=== PATIENT | female | born 2000 | race Caucasian/White ===

== ENCOUNTER 2024-04-24 05:05 | Emergency (ER) | payer OTHER ==
[~2024-04-24] VITALS: Ht 154.9 cm; Wt 58.1 kg
[2024-04-24 05:16] VITALS: BP 112/80; PULSE 109; RESP 16; TEMP 98.2; O2SAT 98
[2024-04-24] MEDS: ONDANSETRON 4 MG ODT PO ONE (05:33)
[2024-04-24 05:48] LABS: APPEARANCE,URINE CLEAR (CLEAR); BILIRUBIN,URINE NEGATIVE (NEGATIVE); BLOOD, URINE 3+ (NEGATIVE); COLOR,URINE YELLOW (YELLOW); LEUKOCYTE ESTERASE ,URINE NEGATIVE (NEGATIVE); NITRITE, URINE NEGATIVE (NEGATIVE); PROTEIN,URINE NEGATIVE (NEGATIVE); UGLUCOSE NEGATIVE (NEGATIVE); UROBILINOGEN,URINE 0.2 EU/dL (0.2 - 1)
[2024-04-24 06:01] LABS: BACTERIA,URINE 10-30 (MOD) /HPF (None Seen); MUCUS,URINE 1+ /LPF (None Seen); SQUAMOUS EPITHELIAL CELL,UR 0-3 (FEW) /LPF (0-3 (FEW)); WBC,URINE 0-5 /HPF (0-5)
[2024-04-24 06:16] LABS: FLU A ANTIGEN negative (NEGATIVE); FLU B ANTIGEN NEGATIVE (NEGATIVE)
[2024-04-24] MEDS: NACL 0.9% 1,000 ML IV ONE (06:43)
[2024-04-24] MEDS: KETOROLAC 30 MG/ML VIAL IVP ONE (06:43)
[2024-04-24 06:49] LABS: BASOPHILS % (AUTO) 0.3 % (0.0-2.0); HEMATOCRIT 37.4 % (36-48); HEMOGLOBIN 12.6 g/dL (12.0-16.0); LYMPHOCYTES % (AUTO) 36.9 % (20.5-51.1); MEAN CORPUSCULAR HEMOGLOBIN 30 pg (27-31); MEAN CORPUSCULAR HGB CONC 34 g/dL (33-37); MEAN CORPUSCULAR VOLUME 90.2 fL (80-94); MONOCYTES # (AUTO) 0.5 K/uL (0.8-1.0); MONOCYTES % (AUTO) 6.2 % (1.7-9.3); NEUTROPHILS # (AUTO) 4.6 K/uL (1.8-7.7); NEUTROPHILS % (AUTO) 56.6 % (42.2-75.2); PLATELET COUNT (AUTO) 89 K/uL (140-450); RED BLOOD CELL COUNT(AUTO) 4.15 MIL/uL (4.20-5.40); RED CELL DISTRIBUTION WIDTH 14.4 % (11.6-13.7); WHITE BLOOD COUNT (AUTO) 8.1 K/uL (4.8-10.8)
[2024-04-24 07:01] LABS: ANION GAP 14.1 (8-16); CALCIUM 8.3 mg/dL (8.5-10.1); CARBON DIOXIDE 25.4 mmol/L (21-32); CREATININE 0.8 mg/dL (0.6-1.3); POTASSIUM 3.5 mmol/L (3.5-5.1)
[2024-04-24 07:06] LABS: ALBUMIN 3.1 g/dL (3.4-5.0); BILIRUBIN,DIRECT 0.3 mg/dL (0.0-0.3); TOTAL BILIRUBIN 0.9 mg/dL (0.0-1.0); TOTAL PROTEIN, SERUM 6.9 g/dL (6.4-8.2)
[2024-04-24] MEDS: ACETAMINOPHEN 325 MG TAB PO ONE (07:17)
[2024-04-24] MEDS ORDERED: CRUSHER, PILL MC ONE (07:21)
[2024-04-24] MEDS: MORPHINE SULFATE 2 MG/ML SYR IVP ONE (07:31)
[2024-04-24] MEDS: METOCLOPRAMIDE 10 MG/2 ML INJ VIAL IVP ONE (07:35)
[2024-04-24] MEDS ORDERED: NAPR-1704 PO (08:58)
[2024-04-24] MEDS ORDERED: LOPE-289 PO (08:59)
[2024-04-24 09:00] VITALS: BP 113/68; PULSE 96; RESP 17; TEMP 98.2; O2SAT 96
[2024-04-25 08:09] LABS: HEPATITIS A ANTIBODY IGM Negative (Negative); HEPATITIS B CORE AB TOTAL Negative (Negative); HEPATITIS B CORE, IGM Negative (Negative); HEPATITIS B SURFACE ANTIBODY Non Reactive (.); HEPATITIS B SURFACE ANTIGEN Negative (Negative); HEPATITIS C VIRUS ANTIBODY Non Reactive (Non Reactive)
[2024-04-25 11:06] LABS: HEPATITIS A ANTIBODY TOTAL Positive (Negative)
== END 2024-04-24 09:15 | disposition home or self-care (01) ==
LOC: MED 05:05
DX: R10.13 Epigastric pain (principal); R11.2 Nausea with vomiting, unspecified; R19.7 Diarrhea, unspecified; R51.9 Headache, unspecified; R74.01 Elevation of levels of liver transaminase levels; D69.6 Thrombocytopenia, unspecified; Z20.822 Contact with and (suspected) exposure to COVID-19; Z79.1 Long term (current) use of non-steroidal anti-inflammatories (NSAID); Z79.899 Other long term (current) drug therapy
CPT/HCPCS: 36415; 76705; 80048; 80076; 81001; 81025; 83690; 85025; 86704; 86706; 86708; 86709; 86803; 87086; 87340; 87426; 87804; 96361; 96374; 96375; 99285; J1885; J2270; J2765; J7030; Q0092; Q0162